=== PATIENT | male | born 1980 | race Caucasian/White ===

== ENCOUNTER 2023-01-21 08:52 | Outpatient (CLI) | payer OTHER, SELFPAY | END 2023-01-21 08:53 | disposition home or self-care (01) | LOC: NFLDREF 01-24 20:26 | PROVIDERS: PCP Family Medicine; Referring Provider Family Medicine; Visit Provider Family Medicine | DX: Z13.1 Encounter for screening for diabetes mellitus (principal); Z13.6 Encounter for screening for cardiovascular disorders | CPT/HCPCS: 80061; 82947 ==

== ENCOUNTER 2024-05-17 09:37 | Outpatient (CLI) | payer OTHER, SELFPAY | END 2024-05-17 09:38 | disposition home or self-care (01) | LOC: NFLDREF 05-18 03:16 | PROVIDERS: PCP Family Medicine; Referring Provider Family Medicine; Visit Provider Family Medicine | DX: E78.5 Hyperlipidemia, unspecified (principal) | CPT/HCPCS: 80053; 80061 ==

== ENCOUNTER 2025-04-13 07:27 | Outpatient (CLI) | payer BC, SELFPAY | END 2025-04-13 07:28 | disposition home or self-care (01) | LOC: NFLDREF 04-19 12:34 | PROVIDERS: PCP Family Medicine; Referring Provider Family Medicine; Visit Provider Family Medicine | DX: E78.5 Hyperlipidemia, unspecified (principal); Z12.5 Encounter for screening for malignant neoplasm of prostate | CPT/HCPCS: 80053; 80061; G0103 ==

== ENCOUNTER 2025-05-17 12:15 | Outpatient (CLI) | payer BC, SELFPAY ==
--- NOTE | 2025-05-24 14:51 | W.PM.SLEEP ---
Sleep Study Details Details Interpreting Provider: Dominic Date of Sleep Study: 05/17/25 Sleep Study Details: STUDY TYPE:? Home unattended ? BMI:? 28.41 ORDERING PROVIDER:? Denise INDICATION:? Concern for sleep apnea ? SLEEP SUMMARY:? 481 minutes monitored RESPIRATORY SUMMARY:? AHI 6.1 per rule 1A, 3.6 per CMS guideline Low oxygen 77 1.3% of study oxygen less than 90% Snoring 97% PERIODIC LIMB MOVEMENTS OF SLEEP:? Not recorded CARDIAC:? Range 59-98, mean 69.8 beats per minute IMPRESSION:? Mild obstructive sleep apnea RECOMMENDATION: Treatment options include CPAP dental appliance and/or airway expansion surgery.
== END 2025-05-17 12:16 | disposition home or self-care (01) ==
LOC: SLEEP 12:17
PROVIDERS: PCP Family Medicine; Visit Provider Family Medicine
DX: G47.33 Obstructive sleep apnea (adult) (pediatric) (principal)
CPT/HCPCS: 95806